=== PATIENT | female | born 1980 | race African-American/Black ===

== ENCOUNTER 2018-09-27 18:46 | Emergency (ER) | payer MEDICAID ==
[~2018-09-27] VITALS: Ht 154.9 cm; Wt 59.1 kg
[2018-09-27 18:54] VITALS: Ht 154.9 cm; Wt 59.1 kg
[2018-09-27 19:11] LABS: BASOPHILS 0.7 % (0-2); EOSINOPHILS 9.7 % (0-7); HEMATOCRIT 29.5 % (36.0-48.0); HEMOGLOBIN 9.4 g/dL (12-16); IMMATURE GRANULOCYTES 0.2 % (0-5); LYMPHOCYTES 35.8 % (15-50); MCH 28.4 pg (26.0-34.0); MCHC 31.9 g/dL (31.0-37.0); MCV 89.1 fL (80.0-100.0); MEAN PLATELET VOLUME 12.9 fL (7.4-10.4); MONOCYTES 9.2 % (2-11); NEUTROPHILS 44.4 % (40-80); PLATELET COUNT 202 10x3/uL (130-400); RBC 3.31 10x6/uL (4.00-5.40); RDW 15.8 % (11.5-14.5); WBC 6.1 10x3/uL (4.8-10.8)
[2018-09-27 19:26] LABS: APPEARANCE HAZY (CLEAR); BILIRUBIN NEGATIVE (NEGATIVE); COLOR YELLOW (YELLOW); GLUCOSE NEGATIVE (NEGATIVE); KETONE NEGATIVE (NEGATIVE); NITRITE NEGATIVE (NEGATIVE); PROTEIN NEGATIVE (NEGATIVE)
[2018-09-27 19:28] LABS: BACTERIA MANY /hpf (NONE SEEN); RED CELLS - URINE 0-5 /hpf (0-5)
[2018-09-27 19:29] LABS: MUCUS <1+ /lpf (NONE SEEN)
[2018-09-27 19:30] LABS: HCG URINE NEGATIVE (NEGATIVE)
[2018-09-27 19:32] LABS: ALBUMIN 3.5 g/dL (3.4-5.0); ALKALINE PHOSPHATASE 68 U/L (46-116); ALT (SGPT) 14 U/L (10-68); CALC OSMOLALITY 277 mosm/kg (275-300); CALCIUM 8.4 mg/dL (8.5-10.1); CARBON DIOXIDE 27.1 mmol/L (21.0-32.0); CHLORIDE - SERUM 105 mmol/L (98-107); CREATININE - SERUM 0.9 mg/dL (0.6-1.3); GLUCOSE 95 mg/dL (74-106); POTASSIUM - SERUM 3.6 mmol/L (3.5-5.1); PROTEIN - SERUM 7.8 g/dL (6.4-8.2); SODIUM 141 mmol/L (136-145); UREA NITROGEN 5 mg/dL (7-18); eGFR NON AFRICAN AMERICAN 78 mL/min (90-120)
[2018-09-27 19:34] LABS: UDS - AMPHET NEGATIVE QUAL (NEGATIVE); UDS - BARB NEGATIVE QUAL (NEGATIVE); UDS - BENZO NEGATIVE QUAL (NEGATIVE); UDS - COCAINE NEGATIVE QUAL (NEGATIVE); UDS - OPIATE NEGATIVE QUAL (NEGATIVE); UDS - PCP NEGATIVE QUAL (NEGATIVE); UDS - THC NEGATIVE QUAL (NEGATIVE)
[2018-09-27 19:43] LABS: MAGNESIUM - SERUM 1.5 mg/dL (1.8-2.4)
--- NOTE | 2018-09-27 19:47 | NUR ---
DR CHARLES NOTIFIED AND SITTER ORDERED. SITTER AT BEDSIDE, NOTIFIED CHARGE NURSE AND ATTENDING IN REGARDS TO ASSESSMENT FINDINGS. RESOURCES GIVEN TO PT AND SAFETY PLAN INITIATED.
[2018-09-28 00:50] VITALS: BP 120/76
== END 2018-09-28 00:53 ==
LOC: EDBD 18:46 → D.ER 18:46
PROVIDERS: Family Medicine
DX: R45.851 Suicidal ideations (principal); R45.850 Homicidal ideations